=== PATIENT | female | born 1950 | race Caucasian/White ===

== ENCOUNTER 2017-06-24 20:33 | Emergency (ER) | payer BC, OTHER ==
[~2017-06-24] VITALS: Ht 154.9 cm; Wt 76.7 kg
[~2017-06-24 20:33] MED LIST: ASPIRIN325 PO; ATORVASTATIN CA40 MG PO; BACTRIM DS TAB1 EACH PO; BASAGLAR K100 UNIT/1 SQ; BASAGLAR K100 UNIT/1 SUBQ; CARDIZEM CD180 MG PO; CENTRUM SILVER1 EAC4 PO; COLACE100 MG PO; DOCUSATE SODIU100 MG PO; HYDROCODONE-AP1 EAC6 PO; IFEREX 150150 MG PO; KEFLEX500 MG PO; LANTUS100 UNIT/M SUBQ; LASIX 20 MG TAB20 MG PO; LEVAQUIN 500 M500 M2 PO; LIDOPATCH1 EACH TOP; MAGNESIUM OXID400 MG PO; MILK OF MA2400 MG/10 PO; NEURONTIN600 MG PO; NORCO 5-325 TA1 EACH PO; OXYCODONE HCL 55 MG PO; OXYCODONE HCL5 M1 PO; POTASSIUM GLUC500 GM PO; POTASSIUM20 PO; SODIUM CHORIDE IV; SORINE 80 MG TA80 MG PO; TRAMADOL 50 MG50 MG PO; TYLENOL325 MG PO; ULTRAM 50MG TAB50 MG PO; XARELTO10 MG PO; XARELTO20 MG PO; ZANAFLEX4 MG PO
[2017-06-24 21:18] LABS: ABSOLUTE BASOPHILS 0.1 thou/uL (0.0-0.2); ABSOLUTE EOSINOPHILS 0.1 thou/uL (0.0-0.7); ABSOLUTE MONOCYTES 0.6 thou/uL (0.0-1.2); ABSOLUTE NEUTROPHILS 7.2 thou/uL (1.6-8.1); BASOPHILS 0.6 %; EOSINOPHILS 1.2 %; HEMATOCRIT 38.5 % (37.0-47.0); HEMOGLOBIN 12.5 gm/dL (12.0-15.0); LYMPHOCYTES 11.5 %; MCHC 32.5 g/dL (28.0-37.0); MCV 86.1 fL (80.0-100.0); MPV 8.6 fl. (7.2-11.1); NUCLEATED RBCS 0 /100WBC; PLATELET COUNT* 177 thou/uL (150-400); POLYS 79.7 %; RBC 4.47 mil/uL (4.20-5.00); RDW-CV 17.7 % (10.5-14.5)
[2017-06-24 21:28] LABS: URINE BILIRUBIN NEGATIVE (Negative); URINE BLOOD TRACE (Negative); URINE CLARITY CLEAR; URINE COLOR YELLOW; URINE GLUCOSE-RANDOM NEGATIVE (Negative); URINE KETONES NEGATIVE (Negative); URINE LEUKOCYTES-REFLEX 1+ (Negative); URINE PROTEIN TRACE (Negative); URINE SPECIFIC GRAVITY 1.015 (1.005-1.030); URINE UROBILINOGEN 0.2 E.U./dl (0.2-1.0)
[2017-06-24 21:29] LABS: URINE NITRITE-REFLEX POSITIVE (Negative)
[2017-06-24 21:32] LABS: ANION GAP 10 mmol/L (7-16); BUN 58 mg/dL (7-18); CALCIUM 7.8 mg/dL (8.5-10.1); CHLORIDE 109 mmol/L (98-107); CO2 21 mmol/L (21-32); CREATININE 2.6 mg/dL (0.6-1.3); GLUCOSE 195 mg/dL (70-99); SODIUM 140 mmol/L (136-145)
[2017-06-24 21:37] LABS: CASTS None Seen /LPF (None Seen); CRYSTALS None Seen /LPF (None Seen); SQUAMOUS 0-3 Few /LPF (0-3); URINE RBC None Seen /HPF (0-2)
[2017-06-24 21:41] LABS: INR 1.2; PROTIME 11.4 Seconds (9.20-11.50)
[2017-06-24 21:43] LABS: ALBUMIN 2.9 g/dL (3.4-5.0); ALKALINE PHOSPHATASE 204 U/L (46-116); NT-PRO BRAIN NAT PEPTIDE 2468 pg/mL (<300); SGOT 37 U/L (15-37); SGPT 31 U/L (30-65); TOTAL BILIRUBIN 0.3 mg/dL (<0.1-1.0); TROPONIN-I LEVEL <0.06 ng/mL (<0.06)
[2017-06-24] MEDS ORDERED: MACROBID 100 M100 M1 PO (23:00)
[2017-06-24 23:15] VITALS: BP 126/88
--- NOTE | 2017-06-25 20:14 | EKG ---
[place] [address] ELECTROCARDIOGRAM REPORT Name: CLAUDIA FERNANDEZ Room: [facility]#: [id number] Admission: 06/24/17 Attend Phys: Discharge: 06/24/17 Date of : 54 Report #: [id number] THIS REPORT FOR: //name// [facility] ED Test Date: 2017-06-24 Test Time: 20:46:27 Pat Name: CLAUDIA FERNANDEZ Department: Room: Gender: F Salesperson Corsets: ANAYA Madrigal : 1950 Requested By: Sarah Kirk Order Number: [id number] MD: Nolberto Rangel Measurements Intervals [place] Rate: 59 P: -3 WA: 159 QRS: -22 QRSD: 99 T: 22 QT: 424 QTc: 420 Interpretive Statements Sinus rhythm Inferior infarct, old Anteroseptal infarct, age indeterminate Baseline wander in lead(s) V6 Compared to ECG 10/15/2016 09:43:11 Myocardial infarct finding now present Electronically Signed On 06-25-2017 20:14:31 TIP FIXER by Nolberto Rangel [email or web address] <ELECTRONICALLY SIGNED> By: Nolberto Rangel MD, FACC 06/25/172013 45 45 Nolberto Rangel MD, FAC /EPI
[2018-03-07] MEDS ORDERED: GABAPENTIN 100100 MG PO (09:40)
[2018-03-07] MEDS ORDERED: VITAMIN D35000 UNIT PO (09:42)
[2018-03-07] MEDS ORDERED: RENAL CAPS SOFTG1 MG PO (09:43)
[2018-03-07] MEDS ORDERED: FOLIC ACID1 MG PO (09:43)
[2018-03-07] MEDS ORDERED: LUTEIN 15 MG S1 EACH PO (09:44)
[2018-03-07] MEDS ORDERED: MELATONIN3 M3 PO (09:45)
[2018-03-07] MEDS ORDERED: TUMS PO (09:45)
[2018-03-07] MEDS ORDERED: XARELTO20 MG PO (09:47)
[2018-03-11] MEDS ORDERED: RENAL CAPS SOFTG1 MG PO (11:45)
[2018-03-11] MEDS ORDERED: AVAPRO 150 MG150 M1 PO (11:48)
[2018-03-11] MEDS ORDERED: CRANBERRY PO (11:52)
[2018-03-11] MEDS ORDERED: LOPRESSOR100 M1 PO (11:53)
[2018-03-11] MEDS ORDERED: NORCO 5-325 TA1 EACH PO (15:15)
== END 2017-06-24 23:16 | disposition home or self-care (01) ==
LOC: M.ERS 20:33
PROVIDERS: Emergency Medicine
DX: N39.0 Urinary tract infection, site not specified (principal); M19.90 Unspecified osteoarthritis, unspecified site; E11.40 Type 2 diabetes mellitus with diabetic neuropathy, unspecified; I48.91 Unspecified atrial fibrillation; Z90.49 Acquired absence of other specified parts of digestive tract; Z79.4 Long term (current) use of insulin; Z88.8 Allergy status to other drugs, medicaments and biological substances

== ENCOUNTER → 2018-03-11 | Day surgery (SDC) | payer BC, MEDICARE, OTHER ==
[~2018-03-11] VITALS: Ht 157.5 cm; Wt 75.7 kg
[~2018-03-11] MED LIST changes: +AVAPRO 150 MG150 M1 PO; +CRANBERRY PO; +FOLIC ACID1 MG PO; +GABAPENTIN 100100 MG PO; +LOPRESSOR100 M1 PO; +LUTEIN 15 MG S1 EACH PO; +MACROBID 100 M100 M1 PO; +MELATONIN3 M3 PO; +RENAL CAPS SOFTG1 MG PO; +TUMS PO; +VITAMIN D35000 UNIT PO
--- NOTE | 2018-03-11 12:14 | EKG ---
[place] [address] ELECTROCARDIOGRAM REPORT Name: CLAUDIA FERNANDEZ Room: [facility]#: [id number] Admission: 03/11/18 Attend Phys: Quoc Warren DO Discharge: Date of : 54 Report #: [id number] THIS REPORT FOR: //name// [facility] Test Date: 2018-03-11 Test Time: 11:57:16 Pat Name: CLAUDIA FERNANDEZ Department: Room: Gender: F Shuffle Board Operator: : 1950 Requested By: Kike Traore Order Number: [id number] Reading MD: Cruz Valentine Measurements Intervals [place] Rate: 87 P: [place]: QRS: -25 QRSD: 92 T: 13 QT: 370 QTc: 445 Interpretive Statements Atrial fibrillation poor r wave progression Inferior infarct, old Baseline wander in lead(s) V1,V2 Compared to ECG 06/24/2017 20:46:27 Sinus rhythm no longer present Myocardial infarct finding still present Electronically Signed On 03-11-2018 12:14:20 CDT by Cruz Valentine [email or web address] <ELECTRONICALLY SIGNED> By: Cruz Valentine MD, [facility] 03/11/18 1214 1157 1157 Cruz Valentine MD, [facility] /EPI
[2018-03-11 12:30] LABS: HEMATOCRIT 41.3 % (37.0-47.0); HEMOGLOBIN 13.5 gm/dL (12.0-15.0); MCH 30.4 pg (26.0-34.0); MCHC 32.7 g/dL (28.0-37.0); MCV 93.1 fL (80.0-100.0); MPV 8.1 fl. (7.2-11.1); RBC 4.43 mil/uL (4.20-5.00); RDW-CV 15.8 % (10.5-14.5); WBC 6.4 thou/uL (4.0-11.0)
[2018-03-11 12:34] LABS: CALCIUM 8.4 mg/dL (8.5-10.1); CREATININE 3.8 mg/dL (0.6-1.3); POTASSIUM 4.4 mmol/L (3.5-5.1)
--- NOTE | 2018-03-12 09:53 | OP ---
[address] [address] OPERATIVE REPORT Name: CLAUDIA FERNANDEZ Room: [facility]#: [id number] Admission: 03/11/18 Attend Phys: Quoc Warren DO Discharge: Date of : 54 Report #: [id number] THIS REPORT FOR: //name// CC: Quoc Arvizu Claire Physician staff DATE OF SERVICE: 03/11/2018 PREOPERATIVE DIAGNOSIS: End-stage renal disease. POSTOPERATIVE DIAGNOSIS: End-stage renal disease. OPERATION: Creation of left brachiocephalic arteriovenous fistula. SURGEON: Quoc Warren DO. EDUCATIONAL AID: None. ANESTHESIA: Sedation with local. ESTIMATED BLOOD LOSS: 50 mL. FLUIDS: 200 crystalloid. URINE OUTPUT: None. SPECIMENS: None. COMPLICATIONS: None. FINDINGS: Left cephalic vein was small, but it did dilate up to 3.5 mm easily with the dilators. The brachial artery was about 5 mm in diameter and soft, suitable for access. After fistula creation, she had good radial and ulnar artery Doppler signals that augmented with fistula compression and a good thrill within the fistula in the mid upper arm. CLINICAL HISTORY: The patient is a 67-year-old woman with a need of autogenous access creation. Vein mapping suggested that she had marginal, but left upper extremity vein and so we felt that attempted brachiocephalic fistula would be best option for autogenous access. DESCRIPTION OF PROCEDURE: After informed consent was obtained, the patient was taken to the operating room and placed on the OR bed in supine position. She was administered sedation by the anesthesia team. Left upper extremity was [facility] [address] [place] [address] OPERATIVE REPORT Name: CLAUDIA FERNANDEZ Room: [facility]#: [id number] Admission: 03/11/18 Attend Phys: Quoc Warren DO Discharge: Date of : 54 Report #: [id number] prepped and draped in the usual sterile fashion. A full timeout was performed identifying correct patient and procedure. The skin and subcutaneous tissue just proximal to antecubital fossa were anesthetized with lidocaine anesthetic. Dissection was carried down through skin and subcutaneous tissues, both sharply and electrocautery. Cephalic vein was identified. It appeared small, but circumferentially mobilized proximally and distally and controlled with Silastic vessel loop. I then dissected out the brachial artery, controlled this proximally and distally with Silastic vessel loops in Flor fashion. I then transected the cephalic vein distally, ligated the stump with a 2-0 silk suture ligature. I certainly dilated the vein up to 3.5 mm with minimal resistance. I then administered 5000 units of intravenous heparin. This allowed to circulate for 3 minutes. I then occluded the brachial artery and made a longitudinal arteriotomy extended with Flor scissors, tailored the vein castro and performed end-to-side anastomosis with running 6-0 Prolene suture. Prior to completion of the suture line, the vein and the arteries were allowed to fore and backbleed and then flushed the anastomosis with heparinized saline, completed the suture line, restored flow first up the fistula and then distally to the hand. She had good radial and ulnar artery Doppler signals that augmented with fistula compression. I had a good bruit in the mid upper arm that augmented with fistula compression as well. At this point, once hemostasis was assured, the wound was irrigated with antibiotic solution and was closed in layers with 3-0 Vicryl and 4-0 Monocryl to the skin and Dermabond was applied. All sponge, sharp and instrument counts reported correct x 2. She tolerated the procedure well and was transferred to recovery in stable condition. <ELECTRONICALLY SIGNED> By: Quoc Warren DO 03/12/18 0953 1449 1856Asekou Warren DO /nt
== END | disposition home or self-care (01) ==
LOC: M.SUR 09:14
PROVIDERS: Anesthesiology
DX: E11.22 Type 2 diabetes mellitus with diabetic chronic kidney disease (principal); N18.6 End stage renal disease; Z99.2 Dependence on renal dialysis; I48.91 Unspecified atrial fibrillation; G62.9 Polyneuropathy, unspecified; Z88.8 Allergy status to other drugs, medicaments and biological substances; Z79.899 Other long term (current) drug therapy; Z79.891 Long term (current) use of opiate analgesic; Z87.19 Personal history of other diseases of the digestive system; Z98.890 Other specified postprocedural states; Z83.3 Family history of diabetes mellitus; Z82.49 Family history of ischemic heart disease and other diseases of the circulatory system; Z80.0 Family history of malignant neoplasm of digestive organs; Z87.891 Personal history of nicotine dependence; Z90.49 Acquired absence of other specified parts of digestive tract; Z98.84 Bariatric surgery status; Z96.651 Presence of right artificial knee joint; Z79.01 Long term (current) use of anticoagulants

== ENCOUNTER → 2018-04-06 | Outpatient (CLI) | payer BC, MEDICARE, OTHER ==
[~2018-04-06] VITALS: Ht 157.5 cm; Wt 72.6 kg
[2018-04-06 11:29] VITALS: BP 138/73
[2018-04-06 11:38] LABS: APTT 28.5 Seconds (25.0-31.3); INR 1.1; PROTIME 11.6 Seconds (9.20-11.50)
[2018-04-06 11:42] LABS: CALCIUM 8.5 mg/dL (8.5-10.1); CREATININE 3.8 mg/dL (0.6-1.3); POTASSIUM 4.1 mmol/L (3.5-5.1)
[2018-04-06 13:09] VITALS: BP 145/77
[2018-04-06 13:22] VITALS: BP 144/92
--- NOTE | 2018-04-06 13:34 | OP ---
[facility] [place] [address] [place] [address] OPERATIVE REPORT Name: CLAUDIA FERNANDEZ Room: [facility]#: [id number] Admission: 04/06/18 Attend Phys: Quoc Warren DO Discharge: Date of : 54 Report #: [id number] THIS REPORT FOR: //name// CC: Quoc Blood FAM unknown [facility] DATE OF SERVICE: 04/06/2018 PREOPERATIVE DIAGNOSIS: End-stage renal disease with poorly maturing left brachiocephalic arteriovenous fistula. POSTOPERATIVE DIAGNOSIS: End-stage renal disease with poorly maturing left brachiocephalic arteriovenous fistula. OPERATION: 1. Ultrasound-guided access of left upper extremity fistula. 2. Left upper extremity fistulogram. 3. Angioplasty of cephalic vein. SURGEON: Quoc Warren DO STRAP BUCKLER MACHINE: None. ANESTHESIA: Sedation with local. ESTIMATED BLOOD LOSS: 25 mL. FLUIDS: Less than 100 crystalloid. URINE OUTPUT: None. SPECIMENS: None. COMPLICATIONS: None. IMPLANTS: None. FINDINGS: Ultrasound demonstrated patent fistula circuit. Initial fistulogram again confirmed a patent fistula circuit. She had a moderately severe stenosis in the midportion of the cephalic vein. There was patent anastomosis without significant stenosis. There was no central venous stenosis. Following angioplasty, there was improved flow through the stenotic segment with less filling of the collateral vessels, improved thrill within the fistula. [address] [place] [address] OPERATIVE REPORT Name: CLAUDIA FERNANDEZ Room: [facility]#: [id number] Admission: 04/06/18 Attend Phys: Quoc Warren DO Discharge: Date of : 54 Report #: [id number] CLINICAL HISTORY: The patient is a 67-year-old woman with end-stage renal disease, currently dialyzing through a tunneled dialysis catheter. She had a left brachiocephalic fistula created that has been poorly maturing, is brought in today for intervention-assisted maturation. DETAILS OF PROCEDURE: After informed consent was obtained, the patient was taken to the angio suite, placed on the angio bed in the supine position. She was administered sedation by the nurse at my discretion. A full timeout performed identifying correct patient and procedure. Using ultrasound guided access, the fistula was accessed with micropuncture needle near the antecubital fossa. These images were preserved. Using a Seldinger technique, a microwire and microsheath were placed. I performed a fistulogram with the findings noted above. I then exchanged out for a 6-Albanian sheath and then passed the Bentson wire across the area. Then, I angioplastied this area with a 6 mm Bath balloon with a good result. Followup fistulogram demonstrated good result with really no residual stenosis and less filling of the collaterals. Satisfied with the result, the wire and the sheath were removed and a Monocryl pursestring suture was placed around the sheath. Manual pressure was held for 5 minutes. Once hemostasis was ensured, sterile bandage was applied. All sponge, sharp and instrument counts reported as correct x 2. She tolerated the procedure well and transferred to recovery in stable condition. <ELECTRONICALLY SIGNED> By: Quoc Warren DO 04/06/18 1334 1256 1327Asekou Warren DO /nt
== END | disposition home or self-care (01) ==
LOC: M.INT 10:22
PROVIDERS: Surgery
DX: T82.590A Other mechanical complication of surgically created arteriovenous fistula, initial encounter (principal); E11.22 Type 2 diabetes mellitus with diabetic chronic kidney disease; N18.6 End stage renal disease; I48.91 Unspecified atrial fibrillation; G62.9 Polyneuropathy, unspecified; M06.9 Rheumatoid arthritis, unspecified; Z96.652 Presence of left artificial knee joint; Z98.41 Cataract extraction status, right eye; Z98.42 Cataract extraction status, left eye; Z98.84 Bariatric surgery status; Z98.890 Other specified postprocedural states; Z89.511 Acquired absence of right leg below knee; Z87.891 Personal history of nicotine dependence; Z79.01 Long term (current) use of anticoagulants; Z88.8 Allergy status to other drugs, medicaments and biological substances; Z79.899 Other long term (current) drug therapy; Y83.8 Other surgical procedures as the cause of abnormal reaction of the patient, or of later complication, without mention of misadventure at the time of the procedure

== ENCOUNTER → 2021-05-29 | Day surgery (SDC) | payer MEDICARE, BC ==
[~2021-05-29] MED LIST changes: +AVAPRO75 MG PO; +CALCIUM ACETAT667 MG PO; +HYDROCODON-ACE1 EAC7 PO; +NORCO5 PO; +PREGABALIN75 MG PO; +TOPROL XL50 MG; +VITAMIN B-121000 MC2 SUBLING; +VITAMIN D-40010 MCG PO; +VITAMIN D3125 MC1 PO
[2021-05-29 13:52] LABS: HEMATOCRIT 40.9 % (37.0-47.0); HEMOGLOBIN 13.5 gm/dL (12.0-15.0); MCH 31.3 pg (26.0-34.0); MCHC 32.9 g/dL (28.0-37.0); RBC 4.3 mil/uL (4.20-5.00); WBC 6.4 thou/uL (4.0-11.0)
[2021-05-29 14:13] LABS: CALCIUM 8.9 mg/dL (8.5-10.1); CREATININE 6.7 mg/dL (0.6-1.3)
--- NOTE | 2021-05-29 16:42 | EKG ---
[place] [address] ELECTROCARDIOGRAM REPORT Name: CLAUDIA FERNANDEZ Room: [facility]#: [id number] Admission: 05/29/21 Attend Phys: Sen Aguirre Discharge: Date of : 54 Date of Service: 05/29/21 1353 Report #: [id number] THIS REPORT FOR: //name// [facility] Test Date: 2021-05-29 Test Time: 13:53:59 Pat Name: CLAUDIA FERNANDEZ Department: Room: Gender: F Night Shift: ANGELO : 1950 Requested By: William Gomez Order Number: [id number] Stew MD: Cruz Valentine Measurements Intervals [place] Rate: 83 P: PA: QRS: -28 QRSD: 108 T: 0 QT: 363 QTc: 427 Interpretive Statements Atrial fibrillation poor wave progression Inferior infarct, age indeterminate Compared to ECG 03/11/2018 11:57:16 Myocardial infarct finding still present Electronically Signed On 05-29-2021 16:42:44 CONTINUOUS PROCESS COFFEE ROASTER by Cruz Valentine [email or web address] <ELECTRONICALLY SIGNED> By: Cruz Valentine MD, [facility] 05/29/21 1642 1353 1353 Cruz Valentine MD, [facility] /EPI
--- NOTE | 2021-06-01 14:37 | OP ---
[facility] [address] [place] [address] OPERATIVE REPORT Name: CLAUDIA FERNANDEZ Room: [facility]#: [id number] Admission: 05/29/21 Attend Phys: Sen Victor Discharge: Date of : 54 Report #: [id number] THIS REPORT FOR: cc: Wale Lang MD, Nasar O. MD Patterson,Sen Bustos MD ~ DATE OF SURGERY: 05/29/2021 PREOPERATIVE DIAGNOSIS: End-stage renal disease. POSTOPERATIVE DIAGNOSIS: End-stage renal disease. OPERATIONS: 1. Laparoscopic placement of tunneled intraperitoneal presternal catheter. 2. Laparoscopic omentopexy. SURGEON: Sen Victor MD. ANESTHESIA: General. ESTIMATED BLOOD LOSS: Minimal. SPECIMENS: None. DESCRIPTION OF PROCEDURE: After informed consent was obtained, the patient was brought to the operating room and placed supine. SCDs were placed and working, preoperative antibiotics were administered, general anesthesia was induced. The abdomen was prepped and draped in the usual sterile fashion. A 5 mm incision was made in the left upper quadrant. A 5 mm trocar was placed under direct vision. Pneumoperitoneum was established. Left-sided 5 mm trocar was placed. An incision was made measuring 2 cm in the left rectus sheath above the umbilicus. I then placed the catheter through this incision through the fascia. The catheter was then placed down into the pelvis. The laparoscope was removed. The catheter was then attached to its connector and secured with 2-0 Prolene sutures on each side. It was then tunneled to the left chest and brought out through the left chest pointing downward. It flushed easily with 750 mL of normal saline. This was heparinized saline. It then drained 250 mL easily. I then placed the laparoscope back inside and reinsufflated the abdomen. I made sure that the catheter was down in the pelvis. The cuff at the fascia was secured using a 0 PDS suture, taking a bite of the fascia and then grabbing a bite of the cuff on the catheter and closing the fascial defect. The ports were then removed under direct vision. Prior to this, the omentum was grasped and brought up to the right upper quadrant. A 2-0 Vicryl suture was used using a PMI suture passer to grab through the omentum and then the suture was then brought back through [place] [address] OPERATIVE REPORT Name: CLAUDIA FERNANDEZ Room: [facility]#: [id number] Admission: 05/29/21 Attend Phys: Sen Victor Discharge: Date of : 54 Report #: [id number] The skin was then closed with 4-0 Monocryl. A sterile occlusive dressing was applied over the exit site. Sterile dressings were applied. COMPLICATIONS: None. DISPOSITION: The patient was taken to recovery in satisfactory condition. <ELECTRONICALLY SIGNED> By: Sen Victor MD 06/01/21 1437 1610 1806Sen Victor MD /nt
== END | disposition home or self-care (01) ==
LOC: M.SUR 10:09
PROVIDERS: Anesthesiology; ATTEND Surgery
DX: E11.22 Type 2 diabetes mellitus with diabetic chronic kidney disease (principal); N18.6 End stage renal disease; E11.40 Type 2 diabetes mellitus with diabetic neuropathy, unspecified; M06.9 Rheumatoid arthritis, unspecified; I48.91 Unspecified atrial fibrillation; Z98.890 Other specified postprocedural states; Z79.899 Other long term (current) drug therapy; Z87.891 Personal history of nicotine dependence; Z20.822 Contact with and (suspected) exposure to COVID-19; Z96.652 Presence of left artificial knee joint; Z95.1 Presence of aortocoronary bypass graft; Z90.49 Acquired absence of other specified parts of digestive tract; Z98.41 Cataract extraction status, right eye; Z98.42 Cataract extraction status, left eye